=== PATIENT | female | born 1930 | race African-American/Black ===

== ENCOUNTER 2018-09-08 04:09 | Inpatient (IN) ==
--- NOTE | 2018-09-03 08:15 | EKG Report ---
Test Performed on : 09/03/2018 08:07:14 AM Test Reason : PAT Blood Pressure : / mmHG Vent. Rate : 063 BPM Atrial Rate : 063 BPM P-R Int : 178 ms QRS Dur : 102 ms QT Int : 394 ms P-R-T Axes : 067 000 066 degrees QTc Int : 403 ms Normal sinus rhythm. 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 are no longer present Vent. rate has decreased BY 34 BPM Questionable change in initial forces of Septal leads Nonspecific T wave abnormality now evident in Inferior leads T wave inversion less evident in Lateral leads QT has shortened Unconfirmed Result
[2018-09-03 09:18] LABS: INR 1.09
[2018-09-03 09:19] LABS: PTT 37.2 Seconds (22.3-41.8)
[2018-09-03 09:22] LABS: BASO# 0.01 X1000 (0.0-0.2); BASO% 0.2 % (0.0-0.8); EOS# 0.16 X1000 (0.0-0.7); EOS% 3.9 % (0.0-10.0); HEMATOCRIT 33.4 % (37.0-47.0); HEMOGLOBIN 10.1 g/dL (12.0-16.0); LYMPH# 2.28 X1000 (1.2-3.4); LYMPH% 55.6 % (20.5-51.1); MCH 30.3 PG (27-31); MCHC 30.2 g/dL (33-37); MCV 100.3 FL (81-99); MONO# 0.27 X1000 (0.11-0.59); MONO% 6.6 % (1.7-9.3); MPV 11.2 FL (7.4-10.4); NEUT# 1.38 X1000 (1.4-6.5); NEUT% 33.7 % (42.2-75.2); PLT 152 X1000 (130-400); RBC 3.33 XMIL (4.2-5.4); RDW 12.7 % (11.5-14.5)
[2018-09-03 09:36] LABS: CALCIUM 9.9 mg/dL (8.8-10.2); CREATININE 1.3 mg/dL (0.5-0.9); POTASSIUM 4.9 mmol/L (3.5-5.1)
[2018-09-03 10:55] LABS: URINE SOURCE CLEAN CATCH
[2018-09-03 11:04] LABS: BILIRUBIN URINE NEGATIVE (NEGATIVE); BLOOD URINE NEGATIVE (NEGATIVE); COLOR YELLOW; GLUCOSE URINE NEGATIVE (NEGATIVE); KETONE URINE NEGATIVE (NEGATIVE); LEUKOCYTES URINE SMALL (NEGATIVE); NITRITE URINE NEGATIVE (NEGATIVE); PROTEIN URINE NEGATIVE (NEGATIVE); SP GRAVITY URINE 1.006; TURBIDITY URINE CLEAR (CLEAR); UROBILINOGEN URINE NORMAL (NORMAL)
[2018-09-03 11:05] LABS: UR EPITHELIAL CELLS <10 /HPF (<10); URINE BACTERIA NEGATIVE /HPF; URINE RBC <10 /HPF (<10); URINE WBC <10 /HPF (<10)
[2018-09-03 11:32] LABS: HEMOGLOBIN A1C 5.4 % (4.8-6.0)
[2018-09-08] MEDS ORDERED: ROBINUL ONE (08:25)
[2018-09-08] MEDS ORDERED: XYLOCAINE-MPF 2% ONE (08:25)
[2018-09-08] MEDS ORDERED: DIPRIVAN 1% ONE (08:26)
[2018-09-08] MEDS ORDERED: FENTANYL ONE (08:26)
[2018-09-08] MEDS ORDERED: DECADRON ONE (08:27)
[2018-09-08] MEDS ORDERED: NEO-SYNEPHRINE ONE ×2 (08:29→12:30)
[2018-09-08] MEDS ORDERED: SODIUM CHLORIDE 0.9% 20 ML ONE (08:29)
[2018-09-08] MEDS ORDERED: COLACE ONE (08:36)
[2018-09-08] MEDS ORDERED: REGLAN ONE (08:36)
[2018-09-08] MEDS ORDERED: CELEBREX ONE (08:36)
[2018-09-08] MEDS ORDERED: LYRICA ONE (08:36)
[2018-09-08] MEDS ORDERED: PEPCID ONE (08:36)
[2018-09-08] MEDS ORDERED: LR 1,000 ML ONE (08:37)
[2018-09-08] MEDS ORDERED: KEFZOL 1 GM/D5W 1 GM/50 ML IVPB ONE (08:37)
[2018-09-08] MEDS ORDERED: EXPAREL 1.3% ONE (10:20)
[2018-09-08] MEDS ORDERED: TORADOL ONE (10:20)
[2018-09-08] MEDS ORDERED: MARCAINE 0.25% PF ONE (10:20)
[2018-09-08] MEDS ORDERED: DURAMORPH ONE (10:20)
[2018-09-08] MEDS ORDERED: CYKLOKAPRON 1,000 MG/NS 1,000 MG/100 ML IVPB ONE (10:20)
[2018-09-08] MEDS ORDERED: NEOSPORIN G.U. IRRIGANT ONE (10:20)
[2018-09-08] MEDS ORDERED: SODIUM CHLORIDE 0.9% ONE (10:20)
[2018-09-08] MEDS ORDERED: AMIDATE ONE (10:34)
[2018-09-08] MEDS ORDERED: SODIUM CHLORIDE 0.9% 10 ML ONE (12:01)
[2018-09-08] MEDS ORDERED: EPHEDRINE ONE (12:01)
[2018-09-08] MEDS ORDERED: OFIRMEV 1000 MG/ISOTONIC SOLN 1,000 MG/100 ML BOTTLE ONE (12:02)
[2018-09-08] MEDS ORDERED: ZOFRAN ONE (12:26)
[2018-09-08 12:35] LABS: URINE SOURCE CATH
[2018-09-08 12:40] LABS: BILIRUBIN URINE NEGATIVE (NEGATIVE); BLOOD URINE NEGATIVE (NEGATIVE); COLOR STRAW; GLUCOSE URINE NEGATIVE (NEGATIVE); KETONE URINE NEGATIVE (NEGATIVE); LEUKOCYTES URINE NEGATIVE (NEGATIVE); NITRITE URINE NEGATIVE (NEGATIVE); PROTEIN URINE NEGATIVE (NEGATIVE); TURBIDITY URINE CLEAR (CLEAR); UROBILINOGEN URINE NORMAL (NORMAL)
[2018-09-08 12:41] LABS: UR EPITHELIAL CELLS <10 /HPF (<10); URINE BACTERIA NEGATIVE /HPF; URINE RBC <10 /HPF (<10); URINE WBC <10 /HPF (<10)
[2018-09-08] MEDS ORDERED: ALBUMIN 25% ONE (13:21)
--- NOTE | 2018-09-08 14:10 | OPERATIVE NOTE ---
PROCEDURE DATE: 09/08/2018 PREOPERATIVE DIAGNOSIS: Right hip degenerative joint disease. POSTOPERATIVE DIAGNOSIS: Right hip degenerative joint disease. PROCEDURE PERFORMED: Right anterior total hip arthroplasty using [facility] size 50 hemispherical shell with a 30 mm screw superiorly and 30 mm screw posterior superiorly, a 32 mm inside diameter acetabular liner and a size 9 lateral set stem with a -4 neck length head. ANESTHESIA: General. SURGEON: Clarke Hickman MD. ASSISTANTS: ANGELO Whitney. COMPLICATIONS: None. BLOOD LOSS: Blood loss minimal. DRAINS: Hemovac x1 description. DESCRIPTION OF PROCEDURE: The patient brought to the operative suite and placed in supine position. After successful administration of general anesthesia, the patient was placed on the OSI table in the usual position for right hip. The right hip was then prepped and draped in usual sterile fashion. A longitudinal incision was made beginning 3 cm distal and 3 cm lateral to the anterior superior iliac spine extending distally and slightly laterally 8 cm, dissected sharply through the skin and subcutaneous tissue down to the tensor fascia. The tensor fascia was incised, dissected bluntly down to deep tensor fascia. The deep tensor fascia was incised and the circumflex vessels electrocauterized exposing the anterior capsule. A T capsulotomy was performed exposing the femoral neck. Femoral neck cut was made with the oscillating saw. The femoral head was removed with a power corkscrew. The labrum was resected. The osteophytes were resected. The acetabulum was serially reamed to a 50 mm to accept a 50 cup. The 50 cup was driven into place in proper amount of inclination and anteversion. Two 6.5 cancellous screws were placed superiorly and posterior superiorly and the acetabular liner was locked onto the shell. Attention was then directed to the femur. It was externally rotated, extended, adducted, and elevated out of the wound with the hook on the OSI. Bed the lateral neck was rongeured. The canal was serially broached to a size 9. A size 9 high offset, -4 neck length was trialed and found be excellent leg length, offset, and fit and fill of the stem and leg length. The trial was then removed. The definitive stem was seated on the femur and the ceramic head seated on the Floyd taper. The hip was again reduced it was again found to be in excellent position. The anterior capsule was repaired with 0 V-Loc suture. The hip was copiously to be copiously irrigated with normal saline containing irrigant and Vashe irrigation then copiously infiltrated with Exparel including the posterior capsule, anterior capsule, anterior musculature, and subcutaneous tissue. A drain was placed deep to tensor fascia and buried around the stem neck and the tensor fascia was closed with 0 V-Loc suture. Skin edge approximated with 2-0 Vicryl. Skin was closed with 4-0 nylon and Prineo and sterile dressing was applied. The patient tolerated the procedure well without complication. At the end the procedure, all counts were correct x2. The patient was transferred to recovery room in stable condition. cc: Clarke Hickman MD
[2018-09-08] MEDS ORDERED: NS 1,000 ML ONE (14:12)
[2018-09-08] MEDS: DILAUDID ONE ×2 (14:44→14:54)
[2018-09-08] MEDS ORDERED: OXY IR ONE (15:43)
[2018-09-08] MEDS ORDERED: MORPHINE IV PRN (15:58)
[2018-09-08] MEDS ORDERED: LASIX PO PRN (15:58)
[2018-09-08] MEDS ORDERED: OXY IR PO PRN (15:58)
[2018-09-08] MEDS ORDERED: ZOFRAN IV PRN (15:58)
[2018-09-08] MEDS: NS 1,000 ML IV SCH (16:00)
[2018-09-08] MEDS: TYLENOL PO SCH (18:25)
[2018-09-08] MEDS: KEFZOL 1 GM/D5W 1 GM/50 ML IVPB IV SCH (18:25)
[2018-09-08] MEDS: PERIDEX MT SCH (21:08)
[2018-09-08] MEDS: LIPITOR PO SCH (21:09)
[2018-09-08] MEDS: COLACE PO SCH (21:09)
[2018-09-08] MEDS: ULTRAM PO SCH (21:09)
[2018-09-08] MEDS: NEURONTIN PO SCH (21:09)
[2018-09-09] MEDS: TYLENOL PO SCH ×4 (02:06→21:39)
[2018-09-09] MEDS: NS 1,000 ML IV SCH ×2 (02:06→15:01)
[2018-09-09] MEDS: KEFZOL 1 GM/D5W 1 GM/50 ML IVPB IV SCH (02:07)
[2018-09-09] MEDS: COREG PO SCH ×3 (02:38→21:40)
[2018-09-09] MEDS ORDERED: XARELTO PO SCH (06:00)
[2018-09-09 06:39] LABS: CALCIUM 8.1 mg/dL (8.8-10.2); CREATININE 1.4 mg/dL (0.5-0.9); POTASSIUM 4.8 mmol/L (3.5-5.1)
[2018-09-09 07:31] LABS: HEMATOCRIT 19.4 % (37.0-47.0)
[2018-09-09 07:32] LABS: HEMOGLOBIN 5.8 g/dL (12.0-16.0)
--- NOTE | 2018-09-09 08:30 | PROGRESS NOTE ---
DATE: 09/09/2018 SUBJECTIVE: Ms. Doe is an 88-year-old female, who is postoperative day 1 from a right anterior total hip arthroplasty. She complains of some soreness in her hip at this time. But overall she is doing well. OBJECTIVE: General: She is a well-developed, elderly female. She is alert, oriented, and cooperative with the examination. She is in no acute distress. Vital Signs: Stable. She is afebrile. Extremities: Her right hip dressing is clean, dry, and intact. Her right leg is grossly neurovascularly intact. LABORATORY DATA: Her hemoglobin is 5 and her hematocrit is 19. She has had 150 mL of drainage from her Hemovac drain. ASSESSMENT: Stable postoperative day 1 from a right anterior total hip arthroplasty with acute blood-loss anemia. PLAN: We are going to transfuse 2 units of packed red blood cells for her acute blood loss anemia. We will also hold her Xarelto for now. We are going to keep her Hemovac drain in as it continues to drain. We will have her start working with physical therapy. We recommend that she be discharged to a rehab facility later this week. Dictated by ANGELO Lewis for Clarke Hickman MD cc: ANGELO Lewis MD
[2018-09-09] MEDS: PRILOSEC PO SCH (08:32)
[2018-09-09] MEDS: PERIDEX MT SCH ×2 (08:32→21:38)
[2018-09-09] MEDS: COLACE PO SCH ×2 (08:33→21:39)
[2018-09-09] MEDS: NEURONTIN PO SCH ×2 (08:33→21:39)
[2018-09-09] MEDS: ULTRAM PO SCH ×2 (08:34→21:38)
[2018-09-09] MEDS: COZAAR PO SCH (08:34)
[2018-09-09] MEDS: LIPITOR PO SCH (21:39)
[2018-09-10] MEDS: TYLENOL PO SCH ×4 (02:57→21:32)
[2018-09-10 06:41] LABS: HEMATOCRIT 23.7 % (37.0-47.0); HEMOGLOBIN 7.5 g/dL (12.0-16.0)
[2018-09-10] MEDS: COZAAR PO SCH (08:05)
[2018-09-10] MEDS: COLACE PO SCH ×3 (08:05→21:33)
[2018-09-10] MEDS: NS 1,000 ML IV SCH ×2 (08:05→15:37)
[2018-09-10] MEDS: COREG PO SCH ×2 (08:05→21:33)
[2018-09-10] MEDS: NEURONTIN PO SCH ×2 (09:13→21:32)
[2018-09-10] MEDS: PRILOSEC PO SCH (09:13)
[2018-09-10] MEDS: PERIDEX MT SCH ×2 (09:13→21:31)
[2018-09-10] MEDS: MILK OF MAGNESIA PO PRN (09:13)
[2018-09-10] MEDS: ULTRAM PO SCH ×2 (09:14→21:33)
--- NOTE | 2018-09-10 19:17 | PROGRESS NOTE ---
DATE: 09/10/2018 SUBJECTIVE: Megan Doe is an 88-year-old female who is postoperative day 2 from a total hip arthroplasty. She has no complaints. OBJECTIVE: She is a well-developed, well-nourished female. She is alert, oriented and cooperative with exam. She walked about 143 feet with physical therapy this afternoon. Her wound is clean, dry and intact without sign of infection. She complains of no pain, however, her hematocrit has only increased to 23.7 and her hemoglobin to 7.5. IMPRESSION: Stable right total hip arthroplasty. PLAN: I am going to transfuse another 2 units tonight. She should be ready to go to rehab either tomorrow or Saturday, whenever a bed is available. cc: MD Meri Pantoja
[2018-09-10] MEDS: LIPITOR PO SCH (21:33)
[2018-09-11] MEDS: TYLENOL PO SCH ×2 (03:00→08:57)
[2018-09-11] MEDS: OXY IR PO PRN ×2 (04:13→12:13)
[2018-09-11 06:08] LABS: HEMATOCRIT 32.3 % (37.0-47.0); HEMOGLOBIN 10.6 g/dL (12.0-16.0)
--- NOTE | 2018-09-11 08:24 | DISCHARGE SUMMARY ---
ADMISSION DATE: 09/08/2018 DISCHARGE DATE: 09/11/2018 DISCHARGE DIAGNOSES: 1. Right hip degenerative joint disease status post right anterior total hip arthroplasty. 2. Acute blood loss anemia treated with transfusion x4 units. DISCHARGE MEDICATIONS: See discharge med list. DISPOSITION: The patient discharged to rehab with instructions for a total hip arthroplasty protocol. Instructed to leave the Prineo gauze dressing on her hip but keep it covered with gauze. It can be washed gently but not scrubbed. She has no hip precautions and no restrictions. She is discharged to rehab with instructions to follow up with Dr. Hickman next . HOSPITAL COURSE: On the day of admission, patient underwent a right total hip arthroplasty. Her postoperative course was complicated by acute blood loss anemia treated with transfusion, slow progress with physical therapy. At discharge, she is afebrile, tolerating a regular diet, ambulating well with physical therapy. Her wound is clean, dry, intact without sign of infection. Her hematocrit is now stable at 32.3%. Her hemoglobin is 10.6. She is now ambulating well with therapy over 150 feet. She has good urinary output and has normal bowel function. She will be discharged to rehab in stable condition with instructions to follow up as described above. cc: Clarke Hickman MD
[2018-09-11] MEDS: COLACE PO SCH (08:57)
[2018-09-11] MEDS: COZAAR PO SCH (08:57)
[2018-09-11] MEDS: NEURONTIN PO SCH (08:57)
[2018-09-11] MEDS: PRILOSEC PO SCH (08:57)
[2018-09-11] MEDS: COREG PO SCH (08:58)
[2018-09-11] MEDS ORDERED: ASPIRIN PO SCH (09:00)
[2018-09-11] MEDS: PERIDEX MT SCH (09:02)
[2018-09-11] MEDS: ULTRAM PO SCH (09:02)
[2018-09-11] MEDS: MILK OF MAGNESIA PO PRN (09:04)
[2018-09-11 12:12] VITALS: BP 126/57
== END 2018-09-11 12:37 | DRG 470 ==
LOC: SURHOLD 04:09 → 4N 11:41
PROVIDERS: ADMIT Orthopaedic Surgery; ATTEND Orthopaedic Surgery
CPT/HCPCS: 36430; 76000; 80048; 81001; 82040; 83036; 85014; 85018; 85025; 85610; 85730; 86850; 86900; 86901; 86920; 88304; 88311; 93005; 93010; 94761; 94799; 97110; 97116; 97162; 97530; A9270; C9290; J0131; J0690; J1100; J1170; J1885; J2274; J2275; J2370; J2405; J3010; J7030; J7120; P9016; P9047; Q9974; S0020